=== PATIENT | male | born 1945 | race Caucasian/White ===

== ENCOUNTER → 2024-03-27 09:54 | Outpatient (REF) | payer MEDICARE, OTHER, SELFPAY | LOC: RCS 09:54 | PROVIDERS: ATTENDING PHYSICIAN Nurse Practitioner Family | DX: Z01.818 Encounter for other preprocedural examination (principal) | CPT/HCPCS: 93005 ==

== ENCOUNTER → 2024-06-09 09:13 | Outpatient (REF) | payer MEDICARE, OTHER, SELFPAY ==
[2024-06-09 11:56] LABS: Glycohemoglobin (HgbA1c) 5.1 % (4.0-5.6)
[2024-06-09 12:03] LABS: Free T4 1.55 ng/dl (0.78-2.19); Vitamin D, 25-OH*** 50.6 ng/mL (30-80)
[2024-06-09 12:16] LABS: TSH 0.16 uIU/ml (0.47-4.68)
== END ==
LOC: REG 09:13
PROVIDERS: ATTENDING PHYSICIAN Internal Medicine Geriatric Medicine
DX: Z00.00 Encounter for general adult medical examination without abnormal findings (principal); N30.10 Interstitial cystitis (chronic) without hematuria; I10 Essential (primary) hypertension; R22.32 Localized swelling, mass and lump, left upper limb; E78.2 Mixed hyperlipidemia; E03.9 Hypothyroidism, unspecified; G47.33 Obstructive sleep apnea (adult) (pediatric); G43.909 Migraine, unspecified, not intractable, without status migrainosus; J84.9 Interstitial pulmonary disease, unspecified; I25.10 Atherosclerotic heart disease of native coronary artery without angina pectoris; Z13.89 Encounter for screening for other disorder; Z12.5 Encounter for screening for malignant neoplasm of prostate; E55.9 Vitamin D deficiency, unspecified; R73.9 Hyperglycemia, unspecified; R79.9 Abnormal finding of blood chemistry, unspecified
CPT/HCPCS: 36415; 82306; 83036; 84439; 84443

== ENCOUNTER → 2024-07-21 09:48 | Outpatient (REF) | payer MEDICARE, OTHER, SELFPAY | LOC: RST 09:48 | PROVIDERS: ATTENDING PHYSICIAN Nurse Practitioner Adult Health; FAMILY PHYSICIAN Internal Medicine Geriatric Medicine | DX: R05.9 Cough, unspecified (principal); R13.10 Dysphagia, unspecified | CPT/HCPCS: 71250; 74230; 92611 ==

== ENCOUNTER → 2024-09-01 09:15 | Outpatient (REF) | payer MEDICARE, OTHER, SELFPAY ==
[2024-09-01 10:48] LABS: Free T4 1.29 ng/dl (0.78-2.19)
== END ==
LOC: REG 09:15
PROVIDERS: ATTENDING PHYSICIAN Internal Medicine Geriatric Medicine
DX: E03.9 Hypothyroidism, unspecified (principal)
CPT/HCPCS: 36415; 84439; 84443

== ENCOUNTER → 2025-01-26 08:41 | Outpatient (REF) | payer MEDICARE, OTHER, SELFPAY | LOC: RAD 08:41 | PROVIDERS: ATTENDING PHYSICIAN Internal Medicine Geriatric Medicine | DX: I10 Essential (primary) hypertension (principal); R22.32 Localized swelling, mass and lump, left upper limb; E78.2 Mixed hyperlipidemia; Z23 Encounter for immunization | CPT/HCPCS: 74246 ==